=== PATIENT | female | born 1960 | race Caucasian/White ===

== ENCOUNTER 2018-01-29 10:50 | Day surgery (SDC) | payer BC ==
[~2018-01-29 10:50] MED LIST: Lactated Ringers 1,000 ML IV SCH; Sodium Chloride 0.9% 10 ML Syringe FLUSH PRN
[2018-01-29] MEDS: Lactated Ringers 1,000 ML IV SCH ×2 (11:43→19:32)
[2018-01-29] MEDS ORDERED: Lidocaine 2% 100 MG/5 ML Syringe IVPUSH ONE (12:30)
[2018-01-29] MEDS ORDERED: Propofol 200 MG/20 ML SDV IV ONE (12:30)
[2018-01-29] MEDS ORDERED: Lactated Ringers 1,000 ML IV ONE (12:30)
[2018-01-29] MEDS ORDERED: fentaNYL 100 MCG/2 ML SDV IV ONE (12:30)
[2018-01-29] MEDS ORDERED: Phenylephrine 1% 10 MG/ML SDV IV ONE (12:30)
[2018-01-29] MEDS ORDERED: Dexamethasone 4 MG/ML 5 ML MDV IVPUSH ONE (12:30)
[2018-01-29] MEDS ORDERED: Rocuronium 100 MG/10 ML MDV IV ONE (12:30)
[2018-01-29] MEDS ORDERED: Ketorolac 30 MG/ML SDV IVPUSH ONE (12:30)
[2018-01-29] MEDS ORDERED: Ondansetron 4 MG/2 ML SDV IVPUSH ONE (12:30)
[2018-01-29] MEDS ORDERED: Ketamine 500 mg/10 ML MDV IV ONE (12:30)
--- NOTE | 2018-01-29 12:33 | PCM.HPR ---
H & P Addendum review - H & P Addendum Review Date of Original H & P: 01/11/18 Date Reviewed: 01/29/18 Time Reviewed: 12:15 Patient was Examined: No Changes
[2018-01-29] MEDS ORDERED: Isosulfan Blue 5 ML SDV ONE (12:48)
--- NOTE | 2018-01-29 14:50 | PCM.OPNOTE ---
- General Post-Op/Procedure Note Date of Surgery/Procedure: 01/29/18 Operative Procedure(s): L Mastectomy / Sentinal Node Bx Pre Op Diagnosis: L Breast Ca Post-Op Diagnosis: Same Anesthesia Technique: General ET Tube Primary Surgeon: Rowdy Anthony EBFer in mLs: 25 Surgical Drain/Tube Type: Brandon Mo[place] Flat Drain Complications: None Condition: Good
--- NOTE | 2018-01-29 15:27 | NM ---
INDICATION: Left breast CA. NUCLEAR MEDICINE TUMOR LOCALIZATION, LIMITED: Injection was made for lymph node delineation at the time of left breast mastectomy with node dissection at 1225 hours in the left breast by Dr. Anthony. One injection site was utilized. 1.2 mCi technetium-99m sulfur colloid was injection in 1.2 mL of diluent. MTDD
[2018-01-29] MEDS ORDERED: Morphine 2 MG/ML Syringe IVPUSH PRN (16:36)
[2018-01-29] MEDS ORDERED: Morphine 2 MG/ML Syringe ONE (16:39)
[2018-01-29] MEDS: Acetaminophen/HYDROcodone 325-5 MG Tab PO PRN (17:32)
[2018-01-29] MEDS ORDERED: Aluminum Hydroxide/Magnesium Hydroxide Susp 30 ML Cup PO PRN (21:48)
[2018-01-29] MEDS ORDERED: ClonazePAM 0.5 MG Tab PO PRN (21:51)
--- NOTE | 2018-01-29 22:57 | OR ---
DATE OF OPERATION: 01/29/2018 SURGEON: Rowdy Anthony MD PREOPERATIVE DIAGNOSIS: Left breast cancer. POSTOPERATIVE DIAGNOSIS: Left breast cancer. PROCEDURE: 1. Injection of left breast with radioactive sulfur colloid. 2. Injection of left breast with Lymphazurin blue. 3. Left axillary sentinel node biopsy. 4. Left simple mastectomy. ANESTHESIA: General. PROCEDURE DETAILS: The patient was initially injected with radioactive sulfur colloid prior to being brought back to the operating room. In the operating room, time-out was performed. General endotracheal anesthesia was administered. The left breast was injected with 3 mL of methylene blue beneath the mid breast. The left chest and arm were prepped with ChloraPrep and draped sterilely. A Neoprobe was used to scan the left axilla and very minimal activity was present. The breast was massaged and about 15 minutes more time waited, and there was still minimal activity. It was felt that there was some activity in the lower axilla. The upper skin flap of the mastectomy incision was then performed, and skin flap were raised just below the level of the clavicle and extended laterally towards the axilla. At that time, the axilla was scanned, and again there was not much activity with the Neoprobe. I was able find one area and as I dissected further and tapped the axilla, this became more obvious. The first sentinel node was identified and was small, approximately 5 mm in diameter, without any blue dye in. A 10-second count was 7268. A second node was also found at the level 1 nodes with a count of 2193. Lastly, there was some activity that remained beneath the pectoral muscle in the level 2 node area, and this was identified with a 10-second [place] of 4097. There was no significant activity present anymore, and this was re-scanned after the procedure and again there was no significant activity. The inferior flap of the mastectomy incision was then created down to the level of the chest wall. The breast was removed from the pectoral muscle using electrocautery. Minimal oozing was controlled with electrocautery. The breast was then removed laterally down to the latissimus dorsi. I did scan the left breast axillary tail region following removal, and I did not identify any significant activity. The breast was sent for pathology review and the tail marked, so the pathologist can evaluate for any further nodes. The wound was thoroughly irrigated and return was clear and hemostasis assured. A quarter- inch flat Davol drain was brought out inferior to the incision laterally and secured to the skin with 2-0 silk. The breast skin flaps were then reapproximated with interrupted 2-0 Vicryl and skin closed with avel. A bulky sterile pressure dressing was applied. The patient tolerated the procedure well. Estimated blood loss was less than 50 mL. She returned to postanesthesia in stable condition. /[id number] YANNI/GRIS
[2018-01-30] MEDS: Acetaminophen/HYDROcodone 325-5 MG Tab PO PRN ×2 (02:59→07:40)
[2018-01-30] MEDS: Lactated Ringers 1,000 ML IV SCH (03:18)
--- NOTE | 2018-01-30 11:23 | PCM.SURGPN ---
- General Info Date of Service: 01/30/18 Date of Surgery/Procedure: 01/29/18 POD#: 1 Post-Op Diagnosis: Mastectomy for Ca of Left Breast Functional Status: Reports: Pain Controlled (Feels a little more pain in upper chest above incision then yesterday but otherwise comfortable) - Review of Systems General: Denies: Fever Pulmonary: Denies: Shortness of Breath Gastrointestinal: Denies: Abdominal Pain Musculoskeletal: Reports: Other (no numbness or swelling in left arm). Denies: Arm Pain - Patient Data Vitals - Most Recent: Last Vital Signs Temp 98.1 F 01/30/18 08:00 Pulse 75 01/30/18 08:00 Resp 16 01/30/18 08:00 BP 114/68 01/30/18 08:00 Pulse Ox 99 01/30/18 08:00 Weight - Most Recent: 219 lb I&O - Last 24 Hours: Intake & Output 01/29/18 01/30/18 01/30/18 22:59 06:59 14:59 Intake Total 760 1560 Output Total 345 500 510 Balance 415 1060 -510 Lab Results Last 24 Hrs: Laboratory Results - last 24 hr 01/29/18 Range/Units 11:55 Potassium 4.5 (3.5-5.3) mmol/L Med Orders - Current: Current Medications Hydrocodone Bitart/Acetaminophen ([place] 325-5 Mg) 1 tab PO Q4H PRN PRN Reason: Pain Last Admin: 01/30/18 07:40 Dose: 1 tab Al Hydroxide/Mg Hydroxide (Mag-Al Susp) 30 ml PO Q2H PRN PRN Reason: Heartburn Last Admin: 01/29/18 22:09 Dose: 30 ml Clonazepam (Klonopin) 0.5 mg PO TID PRN PRN Reason: ANXIETY Last Admin: 01/29/18 23:46 Dose: 0.5 mg Lactated Ringer's (Ringers, Lactated) 1,000 mls @ 125 mls/hr IV ASDIRECTED FLOYD Last Admin: 01/30/18 03:18 Dose: 125 mls/hr Morphine Sulfate (Morphine) 2 mg IVPUSH Q1H PRN PRN Reason: Pain (severe 7-10) Last Admin: 01/29/18 16:57 Dose: 2 mg Sodium Chloride (Saline Flush) 10 ml FLUSH ASDIRECTED PRN PRN Reason: Keep Vein Open Discontinued Medications Dexamethasone (Dexamethasone) 4 mg IVPUSH .STK-MED ONE Stop: 01/29/18 12:31 Fentanyl (Sublimaze) 300 mcg IV .STK-MED ONE Stop: 01/29/18 12:31 Lactated Ringer's (Ringers, Lactated) 1,000 mls @ 125 mls/hr IV ASDIRECTED FLOYD Acetaminophen (Ofirmev) 100 mls @ as directed IV .STK-MED ONE Stop: 01/29/18 12:31 Lactated Ringer's (Ringers, Lactated) 1,000 mls @ as directed IV .STK-MED ONE Stop: 01/29/18 12:31 Isosulfan Blue (Lymphazurin 1%) 5 ml .XX .STK-MED ONE Stop: 01/29/18 12:49 Last Admin: 01/29/18 12:48 Dose: 5 ml Ketamine HCl (Ketalar) 50 mg IV .STK-MED ONE Stop: 01/29/18 12:31 Ketorolac Tromethamine (Toradol) 30 mg IVPUSH .STK-MED ONE Stop: 01/29/18 12:31 Lidocaine HCl (Xylocaine 2%) 50 mg IVPUSH .STK-MED ONE Stop: 01/29/18 12:31 Morphine Sulfate (Morphine) Confirm Administered Dose 2 mg .ROUTE .STK-MED ONE Stop: 01/29/18 16:40 Last Admin: 01/29/18 18:10 Dose: Not Given Ondansetron HCl (Zofran) 4 mg IVPUSH .STK-MED ONE Stop: 01/29/18 12:31 Phenylephrine HCl (Keven-Synephrine) 0.3 mg IV .STK-MED ONE Stop: 01/29/18 12:31 Propofol (Diprivan 20 Ml) 350 mg IV .STK-MED ONE Stop: 01/29/18 12:31 Rocuronium Beulah (Zemuron) 30 mg IV .STK-MED ONE Stop: 01/29/18 12:31 Sodium Chloride (Saline Flush) 10 ml FLUSH ASDIRECTED PRN PRN Reason: Keep Vein Open - Exam Wound/Incisions: Other (Skin edges intact with good color. Moderate ecchymosis in surgical area. No localized swelling or fluctuance on chest or in axilla.). No: Erythema General: Alert, Oriented Lungs: Normal Respiratory Effort - Problem List Review Problem List Initiated/Reviewed/Updated: Yes - My Orders Last 24 Hours: Active Orders 24 hr Category Date Time Status Communication Order [RC] ASDIRECTED Care 01/29/18 16:36 Active Drain Management [RC] Q4HR Care 01/29/18 15:09 Active Ready for Discharge [RC] 08 Care 01/29/18 15:10 Active Wound Care [RC] DAILY Care 01/30/18 09:00 Active Regular Diet [DIET] Diet 01/30/18 Breakfast Ordered Acetaminophen/HYDROcodone [[place] 325-5 MG] Med 01/29/18 16:36 Active 1 tab PO Q4H PRN Alum Hydroxide/Mag Hydroxide [Mag-Al Susp] Med 01/29/18 21:48 Active 30 ml PO Q2H PRN ClonazePAM [KlonoPIN] Med 01/29/18 21:51 Active 0.5 mg PO TID PRN Morphine Med 01/29/18 16:36 Active 2 mg IVPUSH Q1H PRN Medication Orders Hydrocodone Bitart/Acetaminophen ([place] 325-5 Mg) 1 tab PO Q4H PRN PRN Reason: Pain Last Admin: 01/30/18 07:40 Dose: 1 tab Admin: 01/30/18 02:59 Dose: 1 tab Admin: 01/29/18 17:32 Dose: 1 tab Al Hydroxide/Mg Hydroxide (Mag-Al Susp) 30 ml PO Q2H PRN PRN Reason: Heartburn Last Admin: 01/29/18 22:09 Dose: 30 ml Clonazepam (Klonopin) 0.5 mg PO TID PRN PRN Reason: ANXIETY Last Admin: 01/29/18 23:46 Dose: 0.5 mg Lactated Ringer's (Ringers, Lactated) 1,000 mls @ 125 mls/hr IV ASDIRECTED FLOYD Last Admin: 01/30/18 03:18 Dose: 125 mls/hr Infusion: 01/30/18 03:18 Dose: 125 mls/hr Admin: 01/29/18 19:32 Dose: 125 mls/hr Infusion: 01/29/18 19:32 Dose: 125 mls/hr Admin: 01/29/18 11:43 Dose: 125 mls/hr Morphine Sulfate (Morphine) 2 mg IVPUSH Q1H PRN PRN Reason: Pain (severe 7-10) Last Admin: 01/29/18 16:57 Dose: 2 mg Sodium Chloride (Saline Flush) 10 ml FLUSH ASDIRECTED PRN PRN Reason: Keep Vein Open - Assessment Assessment (Free Text/Narrative):: POD# 1 Left Mastectomy NAVEEN drainage bloody but appears stable - Plan Plan (Free Text/Narrative):: Cleared for discharge F/U with surgeon in 2 days Hold ASA and NSAID's until seen in clinic
== END 2018-01-30 11:45 | disposition home or self-care (01) ==
LOC: FB.SDS 10:50 → FB.MS 15:40 → FB.SDS 01-30 11:45
PROVIDERS: ATTEND Surgery
DX: C50.112 Malignant neoplasm of central portion of left female breast (principal); C77.3 Secondary and unspecified malignant neoplasm of axilla and upper limb lymph nodes; Z17.0 Estrogen receptor positive status [ER+]; F41.1 Generalized anxiety disorder; E89.0 Postprocedural hypothyroidism; F33.2 Major depressive disorder, recurrent severe without psychotic features; E78.5 Hyperlipidemia, unspecified; J31.0 Chronic rhinitis
CPT/HCPCS: 19301; 36415; 38525; 38792; 78800; 84132; 88307; 88309; 88341; 88342; 88360; A9270; J0131; J1100; J1885; J2270; J2370; J2405; J2704; J3010; J7120; Q9968; A9541